=== PATIENT | female | born 2000 | race African-American/Black ===

== ENCOUNTER 2024-09-15 05:41 | Emergency (ER) | payer MEDICAID ==
[2024-09-15 06:06] LABS: #Basophils Less than 0.03 10x3/uL (0.0-0.2); #Eosinophils Less than 0.03 10x3/uL (0.0-0.7); #Monocytes 0.60 10x3/uL (0.11-0.59); #Neutrophils 5.63 10x3/uL (1.40-6.50); %Basophils 0.1 % (0.0-1.0); %Eosinophils 0.1 % (0.0-10.0); %Lymphocytes 11.6 % (21.0-51.0); %Monocytes 8.5 % (0.0-10.0); %Neutrophils 79.4 % (42.0-75.0); Hematocrit 42.5 % (36.0-47.0); Hemoglobin 14.8 g/dL (12.0-16.0); Mean Corpuscular Hemoglobin 29.4 pg (27.0-31.0); Mean Corpuscular Volume 84.5 fL (78.0-98.0); Platelet Count 252 10x3/uL (130-400); Red Blood Cell (RBC) Count 5.03 mill/uL (4.20-5.40); White Blood Cell (WBC) Count 7.09 10x3/uL (4.8-10.8)
[2024-09-15] MEDS ORDERED: diphenhydrAMINE 50 MG/ML VIAL ONE (06:07)
[2024-09-15] MEDS ORDERED: Metoclopramide HCl 10 MG (2 mL) VIAL ONE (06:07)
[2024-09-15 06:16] LABS: BHCG - Serum POSITIVE (NEGATIVE); Pregs Control Background? CLEAR/WHITE (CLR/WHITE); Pregs Control Bar Appear? YES (CONTROL BAR)
[2024-09-15 06:26] LABS: ALT (SGPT) 14 U/L (Less than 34); AST (SGOT) 21 U/L (11-34); Albumin 4.4 g/dL (3.1-4.5); Alkaline Phosphatase 62 U/L (40-110); Anion Gap 19 mmol/L (10-20); BUN (Urea Nitrogen) 9 mg/dL (7.0-18.7); Bilirubin, Total 0.2 mg/dL (0.3-1.2); Calc. Creatinine Clearance 0 mL/min (70-130); Calcium 9.6 mg/dL (7.8-10.44); Carbon Dioxide 17 mmol/L (22-29); Chloride 105 mmol/L (98-107); Globulin 4.3 g/dL (2.4-3.5); Glucose 102 mg/dL (70-105); Lipase 19 U/L (8-78); Potassium 3.5 mmol/L (3.5-5.1); Sodium 137 mmol/L (136-145)
[2024-09-15 06:41] LABS: Bacteria/HPF None Seen HPF (None Seen); CAUTI Indications for Culture Dysuria,urgency,freq; Glucose, Urine (Dipstick) Normal (Negative); Leukocyte Negative Leu/uL (Negative); Mucous/LPF Rare LPF (<2+); Protein, Urine (Dipstick) 100 mg/dL (Neg-Trace); RBC/HPF 0-3 HPF (0-3); Specific Gravity, Urine 1.039 (1.002-1.036)
[2024-09-15 06:42] LABS: Urine Culture Reflex No No
== END 2024-09-15 08:45 | disposition home or self-care (01) ==
LOC: ERS 05:41
DX: O21.9 Vomiting of pregnancy, unspecified (principal); O23.41 Unspecified infection of urinary tract in pregnancy, first trimester; N39.0 Urinary tract infection, site not specified; Z3A.08 8 weeks gestation of pregnancy
CPT/HCPCS: 76801; 80053; 81001; 83690; 84702; 84703; 85025; 93005; 96361; 96374; 96375; J1200; J2765